=== PATIENT | female | born 1980 | race Caucasian/White ===

== ENCOUNTER 2017-07-20 19:41 | Observation (INO) ==
[2017-07-20 20:12] LABS: Bilirubin,Urine Negative (Negative); Blood,Urine Moderate (Negative); Clarity,Urine Clear (Clear); Color,Urine Yellow (Yellow); Glucose,Urine (UA) Normal (Normal); Ketones,Urine 15 mg/dL (Negative); Leukocyte Esterase,Urine Negative (Negative); Nitrite,Urine Positive (Negative); PH,Urine 5.5 pH Units (5.0-8.0); Protein,Urine Negative (Neg-Trace); Specific Gravity,Urine 1.025 (1.010-1.025); Urobilinogen,Urine Normal (Normal)
[2017-07-20 20:32] LABS: Basophils % 0.5 %; Eosinophils # 0.1 K/mcL (0.0-0.6); Eosinophils % 1.4 %; Hematocrit 36.5 % (35.3-44.9); Hemoglobin 11.7 g/dL (11.5-15.4); Immature Granulocytes % 0.4 % (0-4); Lymphocytes # 2.6 K/mcL (0.6-4.6); Mean Corpuscular HGB Conc 32.1 g/dL (31.6-35.5); Mean Corpuscular Hemoglobin 26.7 pg (28.0-33.3); Mean Corpuscular Volume 83.3 fL (83.0-100.0); Mean Platelet Volume 10.4 fL (9.4-12.4); Monocytes # 0.8 K/mcL (0.0-1.3); Neutrophils # 4.9 K/mcL (1.6-8.9); Platelet Count 312 K/mcL (140-400); Red Blood Count 4.38 M/mcL (3.82-4.97); Red Cell Distribution Width 15.9 % (11.5-14.5); Segmented Neutrophils % 57.7 %
[2017-07-20 20:34] LABS: Mucus,Urine Few (Few); Squamous Epithelial Cell,Urine Moderate per lpf (None-Few)
[2017-07-20 20:35] LABS: Bacteria,Urine Many per hpf (None-Few)
[2017-07-20 20:36] LABS: WBC,Urine 15-30 per hpf (0-3)
[2017-07-20 20:37] LABS: RBC,Urine 0-3 per hpf (0-3)
[2017-07-20 20:47] LABS: Alanine Aminotransferase 8 Units/L (0-55); Albumin 3.8 g/dL (3.5-5.0); Albumin/Globulin Ratio 0.7 (1.1-2.2); Alkaline Phosphatase 99 Units/L (38-126); Aspartate Amino Transferase 14 Units/L (5-34); BUN/Creatinine Ratio 11 (6-26); Bilirubin,Direct 0.2 mg/dL (0.0-0.5); Bilirubin,Indirect 0.3 mg/dL (0.0-1.2); Bilirubin,Total 0.5 mg/dL (0.2-1.2); Blood Urea Nitrogen 9 mg/dL (7-20); Calcium 9.6 mg/dL (8.6-10.8); Carbon Dioxide 22 mEq/L (19-29); Chloride 104 mEq/L (98-109); Globulin 5.2 g/dL (2.4-3.5); Glucose 90 mg/dL (70-99); Lipase 39 Units/L (8-78); Osmolality,Calculated 278 (280-300); Potassium 3.9 mEq/L (3.5-4.5); Sodium 135 mEq/L (136-145); eGFR For African Americans > 60 (> 60); eGFR For Non-African Americans > 60 (> 60)
--- NOTE | 2017-07-20 21:14 | Emergency Department Note ---
Disposition Clinical Impression: Ectopic without intrauterine Qualifiers: Location of ectopic : tubal Laterality: left Qualified Code(s): O00.102 - Left tubal without intrauterine Disposition: Admitted As Inpatient Condition: Good Time of Disposition: 23:48 Abdominal Pain HPI - General Chief Complaint: ED Abdominal Pain Stated Complaint: 4-5 weeks preg, cramping,discharge Time Seen by Provider: 07/20/17 20:54 Source: patient Nursing Notes Reviewed: Yes Vital Signs Reviewed: Yes - History of Present Illness HPI Narrative: The patient Is a 37-year-old female with a history of miscarriages who presents with lower abdominal pain that started at 3am this morning.She Admits the lower abdominal pain does not feels like her previous miscarriages. She describes the pain as a sharp and constant pressure that does not radiate but gets worse with sitting up and leaning forward. She states laying down flat makes the pain better. She denies any associated fever but admits she has vaginal discharge and vaginal bleeding. She denies any headache, chest pain, difficulty breathing , shortness of breath, numbness or tingling, or any weaknesses. Pain Scale: 4 - Related Data Home Medications Medication Instructions Recorded Confirmed Pnv with Ca,No.72/Iron/FA [Pnv 1 tab PO DAILY 07/20/17 07/20/17 Plus Multivit Tab] Allergies Allergy/AdvReac Type Severity Reaction Status Date / Time aspirin AdvReac Anaphylaxis Verified 06/25/16 13:28 Review of Systems: Constitutional: No fever Vision: No blurred vision ENT: No rhinorrhea Respiratory: No cough Allergic: No allergies : Admits vaginal bleeding that started today. GI: Admits lower abdominal pain that does not radiate but is constant and sharp. No blood in stool Hematologic: No bruising Dermatologic: No skin rash Musculoskeletal: No pain in the extremities Neuro: No numbness of the extremities All systems ED: reviewed and negative except as stated. Review of Systems: As Per HPI Abdominal Pain PMH - Past Medical History Medical history: Reports: arthritis, other Female Surgical History: Reports: cholecystectomy, orthopedic, other, other TUG CAPTAIN history: Reports: bilateral tubal ligation Psychiatric history: Reports: anxiety - Social History Smoking status: Current every day smoker Alcohol use: Reports: none Drug use: Reports: none Physical Exam CONSTITUTIONAL: Alert and oriented X3, well-nourished, well appearing, in no apparent distress HEAD: Normocephalic; atraumatic. EYES: PERRL, no scleral icterus. NOSE: The nose is normal in appearance without rhinorrhea RESP: Normal chest excursion with respiration; breath sounds clear and equal bilaterally; no wheezes, rhonchi, or rales CARD: Regular rhythm, without murmurs, rub or gallop ABD: Lower abdomen is tender to palpation. No hepatosplenomegaly. No Mcburney sign. No ecchymosis, bruises, or abrasions. Non-distended;soft,without rigidity , rebound or guarding. PELVIC: Cervix was slightly visualized and appears closed. Patient was tender with exam. Mild blood was present. No purulent discharge on exam. Normal external exam with no lesions, abrasions, tenderness. Piercing present. SKIN: Normal for age and race; warm and dry; no apparent lesions - General Limitations: no limitations General appearance: alert, in no apparent distress - Female Para Professional present during exam: Yes External Exam: Present: normal external exam (with piercing present ). Absent: bleeding, tenderness, lesions, tissues present Course Vital Signs Temperature 98 F 07/20/17 19:42 Pulse Rate 127 07/20/17 19:42 Respiratory Rate 18 07/20/17 19:42 Blood Pressure 129/80 07/20/17 19:42 O2 Sat by Pulse Oximetry 99 07/20/17 19:42 Temperature 98.2 F 07/21/17 00:00 Pulse Rate 80 07/21/17 00:00 Respiratory Rate 16 07/21/17 00:00 Blood Pressure 97/66 07/21/17 00:00 O2 Sat by Pulse Oximetry 98 07/21/17 00:00 Oxygen Delivery Oxygen Delivery Room Air Abdominal Pain - MDM Narrative Medical decision making narrative: Vitals are normal. Patient is afebrile and hemodynamically stable. U/S shows findings are suspicious for ectopic .There is also possible small amount of hemoperitoneum. OB has been consulted and has came down to see the patient. They accepted the patient. Patient will be admitted. Patient agrees with the plan. - Lab Data Lab results reviewed: Yes I reviewed the patient's lab results. Result diagrams: 07/20/17 20:15 07/20/17 20:15 Lab Results 07/20/17 07/20/1717 Range/Units 20:00 20:00 20:15 WBC 8.4 (4.3-11.1) K/mcL RBC 4.38 (3.82-4.97) M/mcL Hgb 11.7 (11.5-15.4) g/dL Hct 36.5 (35.3-44.9) % MCV 83.3 (83.0-100.0) fL MCH 26.7 L (28.0-33.3) pg MCHC 32.1 (31.6-35.5) g/dL RDW 15.9 H (11.5-14.5) % Plt Count 312 (140-400) K/mcL MPV 10.4 (9.4-12.4) fL Immature Gran % 0.4 (0-4) % Seg Neutrophils % 57.7 % Lymphocytes % 31.0 % Monocytes % 9.0 % Eosinophils % 1.4 % Basophils % 0.5 % Neutrophils # 4.9 (1.6-8.9) K/mcL Lymphocytes # 2.6 (0.6-4.6) K/mcL Monocytes # 0.8 (0.0-1.3) K/mcL Eosinophils # 0.1 (0.0-0.6) K/mcL Basophils # 0.0 (0.0-0.2) K/mcL Sodium (136-145) mEq/L Potassium (3.5-4.5) mEq/L Chloride (98-109) mEq/L Carbon Dioxide (19-29) mEq/L BUN (7-20) mg/dL Creatinine (0.57-1.11) mg/dL Est GFR ( Amer) (> 60) Est GFR (Non-Af Amer) (> 60) BUN/Creatinine Ratio (6-26) Glucose (70-99) mg/dL Calculated Osmolality (280-300) Calcium (8.6-10.8) mg/dL Total Bilirubin (0.2-1.2) mg/dL Direct Bilirubin (0.0-0.5) mg/dL Indirect Bilirubin (0.0-1.2) mg/dL AST (5-34) Units/L ALT (0-55) Units/L Alkaline Phosphatase (38-126) Units/L Serum Total Protein (6.0-8.3) g/dL Albumin (3.5-5.0) g/dL Globulin (2.4-3.5) g/dL Albumin/Globulin Ratio (1.1-2.2) Lipase (8-78) Units/L Urine Color Yellow (Yellow) Urine Clarity Clear (Clear) Urine pH 5.5 (5.0-8.0) pH Units Ur Specific [place] 1.025 (1.010-1.025) Urine Protein Negative (Neg-Trace) mg/dL Urine Glucose (UA) Normal (Normal) mg/dL Urine Ketones 15 H (Negative) mg/dL Urine Blood Moderate H (Negative) Urine Nitrite Positive A (Negative) Urine Bilirubin Negative (Negative) Urine Urobilinogen Normal (Normal) mg/dL Ur Leukocyte Esterase Negative (Negative) Urine Microscopic RBC 0-3 (0-3) per hpf Urine Microscopic WBC 15-30 H (0-3) per hpf Ur Squamous Epith Cells Moderate H (None-Few) per lpf Urine Bacteria Many H (None-Few) per hpf Urine Mucus Few (Few) Ur Culture Indicated? YES A (NO) Urine Test Positive A (Negative) Nichol species DNA (Not Detect) Gardnerella DNA Probe (Not Detect) Trichomonas DNA Probe (Not Detect) 07/20/17 07/20/17 Range/Units 20:15 22:10 WBC (4.3-11.1) K/mcL RBC (3.82-4.97) M/mcL Hgb (11.5-15.4) g/dL Hct (35.3-44.9) % MCV (83.0-100.0) fL MCH (28.0-33.3) pg MCHC (31.6-35.5) g/dL RDW (11.5-14.5) % Plt Count (140-400) K/mcL MPV (9.4-12.4) fL Immature Gran % (0-4) % Seg Neutrophils % % Lymphocytes % % Monocytes % % Eosinophils % % Basophils % % Neutrophils # (1.6-8.9) K/mcL Lymphocytes # (0.6-4.6) K/mcL Monocytes # (0.0-1.3) K/mcL Eosinophils # (0.0-0.6) K/mcL Basophils # (0.0-0.2) K/mcL Sodium 135 L (136-145) mEq/L Potassium 3.9 (3.5-4.5) mEq/L Chloride 104 (98-109) mEq/L Carbon Dioxide 22 (19-29) mEq/L BUN 9 (7-20) mg/dL Creatinine 0.82 (0.57-1.11) mg/dL Est GFR ( Amer) > 60 (> 60) Est GFR (Non-Af Amer) > 60 (> 60) BUN/Creatinine Ratio 11 (6-26) Glucose 90 (70-99) mg/dL Calculated Osmolality 278 L (280-300) Calcium 9.6 (8.6-10.8) mg/dL Total Bilirubin 0.5 (0.2-1.2) mg/dL Direct Bilirubin 0.2 (0.0-0.5) mg/dL Indirect Bilirubin 0.3 (0.0-1.2) mg/dL AST 14 (5-34) Units/L ALT 8 (0-55) Units/L Alkaline Phosphatase 99 (38-126) Units/L Serum Total Protein 9.0 H (6.0-8.3) g/dL Albumin 3.8 (3.5-5.0) g/dL Globulin 5.2 H (2.4-3.5) g/dL Albumin/Globulin Ratio 0.7 L (1.1-2.2) Lipase 39 (8-78) Units/L Urine Color (Yellow) Urine Clarity (Clear) Urine pH (5.0-8.0) pH Units Ur Specific [place] (1.010-1.025) Urine Protein (Neg-Trace) mg/dL Urine Glucose (UA) (Normal) mg/dL Urine Ketones (Negative) mg/dL Urine Blood (Negative) Urine Nitrite (Negative) Urine Bilirubin (Negative) Urine Urobilinogen (Normal) mg/dL Ur Leukocyte Esterase (Negative) Urine Microscopic RBC (0-3) per hpf Urine Microscopic WBC (0-3) per hpf Ur Squamous Epith Cells (None-Few) per lpf Urine Bacteria (None-Few) per hpf Urine Mucus (Few) Ur Culture Indicated? (NO) Urine Test (Negative) Nichol species DNA Not Detected (Not Detect) Gardnerella DNA Probe DETECTED A (Not Detect) Trichomonas DNA Probe Not Detected (Not Detect) - Radiology Data Radiology results reviewed: Yes I reviewed the patient's radiology results. Obstetrics Ultrasound 07/20/17 20:58 IMPRESSION: 11 x 9 cm thick-walled cystic structure in the left adnexa, appears separate from the adjacent left ovary. Findings are suspicious for ectopic . There is also possible small amount of hemoperitoneum. No intrauterine gestation identified. Prominent adnexal veins are also noted. Findings were discussed with Tanya Ortega at 10:16 pm on 07/20/2017. D/ / 07/20/2017 22:19:22 Chris Yoder MD / Francie Urias Interpreting Provider: Chris Yoder MD Attestation Statement - Attestation Attestation: I examined this patient and my medical decision-making was reviewed with the Resident Physician. I agree with the documented findings, disposition and treatment plan as described except to the extent set forth below. Patient to ED with lower abdominal cramping. Bleeding. Mis 3 and this morning. She started back to sleep but woke her up. She went to [place] ED and also episodes see. She states they tried to give her medicine to "kill her baby " without doing an ultrasound. She left with her IV in place and came here. On exam she has lower abdominal tenderness that she is not guarding. Tachycardic on arrival but her heart rate has come down to the 90s on my evaluation. Plan. Pelvic ultrasound. Ultrasound shows a cystic structure concerning for an ectopic . Discussed with TUG CAPTAIN who evaluated department. Patient evaluated by OB who will admit. We will check type and screen prior to admission.
[2017-07-20] MEDS ORDERED: 0.9 % Sodium Chloride 1,000 ML IVC ONE (22:20)
[2017-07-20 23:25] LABS: Candida DNA Not Detected (Not Detect); Gardnerella DNA ***DETECTED*** (Not Detect); Trichomonas DNA Not Detected (Not Detect)
--- NOTE | 2017-07-20 23:49 | OB/GYN History & Physical ---
Date of Encounter: 07/21/17 Time of Encounter: 23:35 Assessment and Plan (1) Ectopic without intrauterine Current visit: Yes Status: Acute Discussed with Dr. Mello Admit for observation overnight Surgical vs medical managment NPO after midnight [id number] Up ad karen Risks and benefits of medical management versus surgical management of ectopic was discussed with patient. Patient advised regarding the risk of rupture of ectopic. Patient declines surgical intervention. We will proceed with medical management. Qualifiers: Location of ectopic : tubal Laterality: left Qualified Code(s): O00.102 - Left tubal without intrauterine History of Present Illness Chief complaint: Abdominal Pain HPI: Ms. Dc is a 37 year old female . Presents from [facility] ED left AMA following an diagnosis of ectopic . Pt states LMP of the end of May with a positive test on Tuesday. Pt then went to [facility], due to having IUD, and the IUD was removed, upon removal pt states one arm of the IUD was noted to be broken off. Pt states she had an US at that time and was told they did not see an IUP, but her US was otherwise normal. This morning pt developed mild abdominal pain at 0300 and then started spotting and bleeding about 0900. Pt went to [place] ED and was transferred to [facility] for management, but pt states they wanted to "kill her baby with drugs without even an ultrasound" at [facility], so she left and presented to [place] ED for treatment. Currently rates pain as 1/10 and only has discomfort with palpation. Pt states was unplanned, but would still like to have the option of fertility, prefers not to have surgery if it is an option. 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 Past Med Surg Social Fam HX - Past Medical History Source: patient Medical history: arthritis, thyroid disease, other Psychiatric history: anxiety - Past Surgical History Surgical History: cholecystectomy, orthopedic, other (Hand surgery) - Social History Smoking Status: Current every day smoker Smokeless Tobacco Status: No Alcohol use: none Drug use: none - Family History Mother Hx Family Cardiac Disorders: No Hx Family Respiratory Disorders: No Hx Family Cancer: No Hx Family GI Disorders: No Hx Family Genitourinary Disorders: No Hx Family Endocrine Disorder: Yes (diabetic) Hx Family Musculoskeletal Disorders: No Hx Family Neuromuscular Disorders: No Hx Family Neurologic Disorders: No Hx Family HEENT Disorders: No Hx Family Autoimmune Disorders: No Hx Family Reproductive Disorders: No Hx Family Psychosocial Disorders: No Hx Family Medical Disorders: No Obstetrical History - Pregnancies : 6 Para: 3 Term: 3 : 0 Ab's: 2 Livin Medications and Allergies Pnv with Ca,No.72/Iron/FA [Pnv Plus Multivit Tab] 1 tab PO DAILY [History] 3 Allergy/AdvReac Type Severity Reaction Status Date / Time aspirin AdvReac Anaphylaxis Verified 06/25/16 13:28 Exam - Vital Signs Vital signs: Initial Vital Signs Temp Pulse Resp BP Pulse Ox 98 F 127 18 129/80 99 07/20/17 19:42 07/20/17 19:42 07/20/17 19:42 07/20/17 19:42 07/20/17 19:42 - Constitutional Constitutional: well developed, well nourished, no acute distress, average body habitus - HEENT HEENT: Mucus Membranes Moist - Neck Neck exam: thyromegaly (Mass to right neck) - Lungs Respiratory exam: CTAB - Cardiovascular Cardiovascular exam: RRR - Abdomen Abdomen: Present: bowel sounds normal, diffuse tenderness Abdomen detail: right lower quadrant: tenderness, left lower quadrant: tenderness - Extremities Extremities exam: normal capillary refill, normal inspection Results Result Diagrams: 07/21/17 04:04 07/20/17 20:15 Abnormal lab results MCH 26.7 pg (28.0-33.3) L 07/20/17 20:15 RDW 15.9 % (11.5-14.5) H 07/20/17 20:15 Sodium 135 mEq/L (136-145) L 07/20/17 20:15 Calculated Osmolality 278 (280-300) L 07/20/17 20:15 Serum Total Protein 9.0 g/dL (6.0-8.3) H 07/20/17 20:15 Globulin 5.2 g/dL (2.4-3.5) H 07/20/17 20:15 Albumin/Globulin Ratio 0.7 (1.1-2.2) L 07/20/17 20:15 Urine Ketones 15 mg/dL (Negative) H 07/20/17 20:00 Urine Blood Moderate (Negative) H 07/20/17 20:00 Urine Nitrite Positive (Negative) A 07/20/17 20:00 Urine Microscopic WBC 15-30 per hpf (0-3) H 07/20/17 20:00 Ur Squamous Epith Cells Moderate per lpf (None-Few) H 07/20/17 20:00 Urine Bacteria Many per hpf (None-Few) H 07/20/17 20:00 Ur Culture Indicated? YES (NO) A 07/20/17 20:00 Urine Test Positive (Negative) A 07/20/17 20:00 Gardnerella DNA Probe DETECTED (Not Detect) A 07/20/17 22:10 All other labs normal. - Attending Attestation GUILLERMINA BEAVERS MD
[2017-07-21] MEDS ORDERED: Naloxone 0.4 MG/ML INJ IVP PRN (00:09)
[2017-07-21] MEDS ORDERED: Ringers Solution, Lactated 1,000 ML IVC SCH (00:15)
[2017-07-21 04:17] LABS: Basophils # 0.1 K/mcL (0.0-0.2); Basophils % 0.7 %; Eosinophils # 0.2 K/mcL (0.0-0.6); Eosinophils % 2.2 %; Hematocrit 31.7 % (35.3-44.9); Hemoglobin 10.2 g/dL (11.5-15.4); Immature Granulocytes % 0.1 % (0-4); Lymphocytes # 2.9 K/mcL (0.6-4.6); Lymphocytes % 37.3 %; Mean Corpuscular HGB Conc 32.2 g/dL (31.6-35.5); Mean Corpuscular Hemoglobin 26.6 pg (28.0-33.3); Mean Corpuscular Volume 82.6 fL (83.0-100.0); Mean Platelet Volume 10.4 fL (9.4-12.4); Monocytes # 0.7 K/mcL (0.0-1.3); Neutrophils # 3.9 K/mcL (1.6-8.9); Platelet Count 251 K/mcL (140-400); Red Blood Count 3.84 M/mcL (3.82-4.97); Segmented Neutrophils % 50.7 %
[2017-07-21 13:27] VITALS: BP 99/70
--- NOTE | 2017-07-21 17:24 | Discharge Summary ---
Date of Encounter: 07/21/17 Time of Encounter: 17:22 - Discharge Diagnosis (1) Ectopic without intrauterine Priority: Primary Status: Acute Comments: Discussed s/s ruptured ectopic . Return to ED with any worsining of symptoms . Qualifiers: Location of ectopic : tubal Laterality: left Qualified Code(s): O00.102 - Left tubal without intrauterine - Discharge Medications Home Medications: Pnv with Ca,No.72/Iron/FA [Pnv Plus Multivit Tab] 1 tab PO DAILY [History] Allergies/Adverse Reactions: 3 Allergy/AdvReac Type Severity Reaction Status Date / Time aspirin AdvReac Anaphylaxis Verified 06/25/16 13:28 Data Procedures and tests throughout hospitalization: Laboratory Tests 07/21/17 07/21/17 04:04 04:04 WBC 7.6 RBC 3.84 Hgb 10.2 L D Hct 31.7 L MCV 82.6 L MCH 26.6 L MCHC 32.2 RDW 16.0 H Plt Count 251 MPV 10.4 Immature Gran % 0.1 Seg Neutrophils % 50.7 Lymphocytes % 37.3 Monocytes % 9.0 Eosinophils % 2.2 Basophils % 0.7 Neutrophils # 3.9 Lymphocytes # 2.9 Monocytes # 0.7 Eosinophils # 0.2 Basophils # 0.1 Blood Type O POSITIVE Antibody Screen NEGATIVE Labs on day of discharge: Labs from last 24 hours 07/21/17 07/21/17 04:04 04:04 WBC 7.6 RBC 3.84 Hgb 10.2 L D Hct 31.7 L MCV 82.6 L MCH 26.6 L MCHC 32.2 RDW 16.0 H Plt Count 251 MPV 10.4 Immature Gran % 0.1 Seg Neutrophils % 50.7 Lymphocytes % 37.3 Monocytes % 9.0 Eosinophils % 2.2 Basophils % 0.7 Neutrophils # 3.9 Lymphocytes # 2.9 Monocytes # 0.7 Eosinophils # 0.2 Basophils # 0.1 Blood Type O POSITIVE Antibody Screen NEGATIVE Date of admission: 07/20/17 23:19 Primary care physician: Beatriz Norris - Patient Status Disposition: Home, Self-Care Condition: Good Functional capacity at discharge: independent ambulation Overall status at discharge: patient is progressing back to baseline - Discharge Instructions Follow Up With: Beatriz Norris, ANSWERING SERVICE AGENT [Primary Care Provider] - - Diet and Activity Activity: increase activity as tolerated Diet: advance to your usual diet Hospital Course SURGICAL TECHNOLOGY INSTRUCTOR Time Attestation: Total time spent providing and/or coordinating discharge services: Exam - Constitutional Vitals: Temp Pulse Resp BP Pulse Ox 98.4 F 88 16 99/70 100 07/21/17 13:25 07/21/17 13:25 07/21/17 13:25 07/21/17 13:25 07/21/17 13:25 General appearance IM: A&O X 3 - Respiratory Respiratory exam: Present: CTAB - Cardiovascular Cardiovascular exam IM: Present: RRR - GI/Abdominal GI/Abdominal exam IM: normal bowel sounds, soft - VTE Reasons for not Prescribing Prophylaxis: Treatment not Indicated - Low risk for VTE - Attending Attestation monica olsen md [facility]og
== END 2017-07-21 18:05 | disposition home or self-care (01) ==
LOC: EMEROO 19:41 → 1NENUPED 19:41
PROVIDERS: ADMIT Obstetrics & Gynecology; ATTEND Obstetrics & Gynecology